=== PATIENT | female | born 1945 | race Caucasian/White ===

== ENCOUNTER → 2016-02-12 | Outpatient (CLI) | payer OTHER ==
--- NOTE | 2016-02-12 19:20 | DX ---
Right Foot - Three Views February 12, 2016 Indication: Third metatarsal pain. Evaluate for stress fracture. Comparison: Right foot series dated August 03, 2012. Findings: No fracture, periosteal reaction, or bone lesion has developed. Minimal varus deformity of the 5th metatarsophalangeal joint is unchanged. Joint spaces are well preserved. The bipartite media l sesamoid bone along the plantar aspect of the first metatarsal is unchanged. The small plantar spur is unchanged. Impression: Negative. No evidence of 3rd metatarsal stress fracture.
== END ==
LOC: BMCIMAGING 15:08
PROVIDERS: ATTEND Podiatrist Foot & Ankle Surgery
DX: M79.671 Pain in right foot (principal)

== ENCOUNTER → 2016-05-22 | Outpatient (CLI) | payer OTHER | LOC: BMCIMAGING 11:01 | DX: Z12.31 Encounter for screening mammogram for malignant neoplasm of breast (principal); M81.0 Age-related osteoporosis without current pathological fracture | CPT/HCPCS: G0202 ==

== ENCOUNTER → 2017-08-07 | Outpatient (CLI) | payer OTHER | LOC: BMCIMAGING 11:34 | PROVIDERS: ATTEND Internal Medicine | DX: Z12.31 Encounter for screening mammogram for malignant neoplasm of breast (principal) ==